=== PATIENT | female | born 2000 ===

== ENCOUNTER 2024-01-09 11:12 | Outpatient (AMB) | payer OTHER, SELFPAY ==
--- NOTE | 2024-01-09 11:42 | MHC.PC.OV ---
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 Intake Note: patient here for new patient visit Advertising Associate Required: No Is last menstrual period known: Yes Last menstrual period: 01/06/24 Post menopausal: No Patient : No Allergies No Known Allergies Allergy (Verified 01/09/24 12:04) Tobacco use date assessed: 01/09/24 Dental Screening Dental Screen Date: 01/09/24 Did you have a dental visit in the last 12 months?: Yes Did you have a dental problem in the last 6 months where you did not have access to dental care?: No Was dental information given to patient?: Patient has dentist HPI HPI Comments History of Present Illness Details New patient Prior PCP:?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 Tali Peterson Last office visit/CPE: About 5 years Acute issue(s): None She has had an IUD for the past 3 years She admits to making healthy lifestyle changes. She generally sleeps well She reports multiple moles and skin tags to her entire body. She request a referral to Dermatology Nonsmoker. Does not drink. No recreational drugs PMHx: None SurgHx: None FHx: Mom: DM, HTN, HLD. Dad: Bipolar 1 disorder.. MGM: Cardiovascular disease, DM, HTN, HLD. MGF: Cardiovascular disease, DM, HTN, HLD SocHx: Nonsmoker. Does not drink alcohol. No recreational drugs Last eye exam was with [facility] about a year ago. She will sign a release for her PCP to obtain records She has never had a pap smear test Last tetanus vaccine was over 10 years ago; requests vaccination She is not up-to-date on the flu vaccine; declines vaccination She notes that she is sexually active, in a monogamous relationship, and has no STD concerns [facility] Family History (Updated 01/09/24 @ 11:57 by Staci Gunn) Father Mental illness in member of household Bipolar 1 disorder Mother High blood pressure High cholesterol Diabetes Maternal Grandmother High blood pressure High cholesterol Diabetes Cardiovascular disease Maternal Grandfather High blood pressure High cholesterol Diabetes Cardiovascular disease Social History Housing: House Patient Tobacco Use Status: Never used Tobacco e-Cigarette/Vaping Use: Never Used Second Hand Smoke Exposure: No service: No Current occupational status: student Current occupational exposures/hazards: No Cognitive needs: No Hearing needs: No Vision needs: Yes Female Reproductive History Menstrual Date of last menstrual period: 01/06/24 Questionnaire PHQ-9 Over the last 2 weeks, how often have you been bothered by any of the following problems? 1. Little interest or pleasure in doing things: not at all 2. Feeling down, depressed, or hopeless: not at all 3. Trouble falling or staying asleep, or sleeping too much: not at all 4. Feeling tired or having little energy: not at all 5. Poor appetite or overeating: not at all 6. Feeling bad about yourself - or that you are a failure or have let yourself or your family down: not at all 7. Trouble concentrating on things, such as reading the newspaper or watching television: not at all 8. Moving or speaking so slowly that other people could have noticed. Or the opposite - being so fidgety or restless that you have been moving around a lot more than usual: not at all 9. Thoughts that you would be better off or of hurting yourself in some way: not at all Total score: 0 Depression Screening Interpretation: Negative Depression Screening Done: Yes 74308 - PHQ-9 Billing: Yes Source: Developed by Drs. Joseph Rudd, Dionna Jesus, Sriram You and colleagues, with an educational avinash from [employer]. Thrive Questionnaire Date Thrive assessed: 01/09/24 I am a: Patient What is your living situation today?: I have a steady place to live Within the past 12 months, did the food you bought not last and you didn't have the money to get more?: I choose not to answer this question Within the past 12 months, did you worry whether your food would run out before you got money to buy more?: Sometimes True Do you have trouble paying for medicines?: Yes Do you have trouble getting transportation to medical appointments?: No Do you have trouble paying your heating and electricity bill?: I choose not to answer this question Do you have trouble taking care of your child, family member or friend?: I choose not to answer this question Do you have trouble with day-to-day activities such as bathing, preparing meals, shopping, managing finances, etc.?: No Are you currently unemployed and looking for a job?: I choose not to answer this question Are you interested in more education?: I choose not to answer this question Please select the resources that you would like help with: Paying for medicine Currently or been in a relationship where the following occur: No concerns reported THRIVE Score: 1 AUDIT C Alcohol Use Questionnaire (AUDIT-C) 1. How often do you have a drink containing alcohol?: Never Total Score: 0 Score Reviewed/Action Taken: Yes EVELIA-7 AMB Questionnaire EVELIA-7 Date EVELIA - 7 assessed: 01/09/24 Feeling nervous, anxious, or on edge: 0 = Not at all Not being able to stop or control worryin = Not at all Worrying too much about different things: 0 = Not at all Trouble relaxin = Not at all Being so restless that it is hard to sit still: 0 = Not at all Becoming easily annoyed or irritable: 0 = Not at all Feeling afraid as if something awful might happen: 0 = Not at all Total EVELIA-7 score (0-4 normal; 5-9 mild; 10-14 moderate; 15-21 severe): 0 Source: Developed by Drs. Joseph uRdd, Dionna Jesus, Sriram You and colleagues, with an educational avinash from [employer]. EVELIA-7 Assessment Billing EVELIA-7 Assessment Tool: EVELIA-7 Assessment 23375 Review of Systems Const Details: Denies chills, Denies fatigue, Denies fever(s), Denies headache(s) and Denies weakness HEENT Denies change in vision, Denies dizziness, Denies headache(s), Denies hearing loss, Denies nasal congestion, Denies sinus pain, Denies sinus pressure and Denies sore throat Card Denies chest pain, Denies lightheadedness, Denies dyspnea and Denies other (palpitations) Resp Denies cough, Denies dyspnea and Denies wheezing GI Denies abdominal pain, Denies melena, Denies hematochezia, Denies change in bowel habits, Denies dyspepsia and Denies nausea Denies hematuria and Denies dysuria Musc Denies abnormal gait, Denies myalgias, Denies arthralgias, Denies numbness and Denies tingling Skin/Breast Denies rash, Denies unusual bruising and Denies wounds Neuro Denies abnormal gait, Denies dizziness, Denies headache(s), Denies memory loss, Denies numbness, Denies Sensory deficit (Neuro), Denies tingling and Denies weakness Psych Denies anxiety, Denies depression and Denies memory loss Endo Denies cold intolerance, Denies fatigue, Denies heat intolerance, Denies polydipsia and Denies polyuria Elmer/Lymph Denies easy bleeding and Denies easy bruising Aller/Immun Denies wheezing Physical exam (Primary Care) Vital Signs: Last Vital Signs Temp 99.3 F 01/09/24 11:46 Pulse 70 01/09/24 11:46 Resp 16 01/09/24 11:46 BP 110/68 01/09/24 11:46 Pulse Ox 100 01/09/24 11:46 Oxygen Delivery Method Room Air 01/09/24 11:46 BMI result Body Mass Index 26.3 Tobacco/Smoking Status: Tobacco use Status Tobacco use date assessed 01/09/24 01/09/24 11:57 Patient Tobacco Use Status Never used Tobacco 01/09/24 11:57 e-Cigarette/Vaping Use Never Used 01/09/24 11:57 PHQ-9: PHQ-9 Score PHQ-9: Total score 0 01/09/24 12:25 Depression Screening Interpretation: Negative Thrive Assessment: Date of Thrive Assessment Date Thrive assessed 01/09/24 01/09/24 11:44 Currently or been in a relationship where the following occur: No concerns reported Const Other: General: no acute distress, well developed, alert and awake Nutritional Appearance: well nourished Orientation/consciousness: patient oriented x3 HENMT Head: Yes normocephalic and Yes atraumatic Ears: hearing grossly normal bilaterally and TM's normal bilaterally General nose exam: Normal external nose present and Normal nares present Mouth: Normal oral and palatal mucosa present and moist mucous membranes Teeth and gingiva: dentition normal Throat: Yes oropharynx normal Eyes Pupils: Equal, round and reactive pupils present and Pupil accommodation reflex normal EOM: EOMs intact bilaterally Neck Neck: Yes normal visual inspection, Yes no lymphadenopathy and Yes trachea midline Thyroid: Thyroid normal Carotids: no bruits Lymphatic: no lymphadenopathy noted Chest Chest palpation & inspection: normal inspection of the chest Resp Effort & Inspection: normal respiratory effort Auscultation: clear to auscultation bilaterally Cardio Rate: regular rate Rhythm: regular rhythm Heart sounds: S1 normal heart sound present, S2 normal heart sound present, no gallops, no murmurs and no rubs Bruits: no abdominal aortic bruits and no carotid bruits GI Palpation (GI): No Abdominal aortic bruit present, Soft to palpation, nontender, No hepatosplenomegaly present and No Rebound tenderness present Auscultation: normal bowel sounds General: Yes no CVA tenderness Back/Spine/Pelvis Back: no CVA tenderness Cervical Spine: cervical ROM normal and No Cervical spine tenderness Thoracic/Lumbar Spine: thoraco-lumbar ROM normal, No pain with thoraco-lumbar ROM, No thoracic spinal tenderness and No lumbar spinal tenderness Skin General: warm and dry. Normal skin color. Normal skin turgor Lesions: Multiple moles and skin tags to different areas of her body Rashes: no rashes Trauma: no lacerations or abrasions Wounds: no wounds Nails: normal Neuro General: patient oriented x3, gait normal and CN's II-XI intact bilaterally Cranial nerves: Yes Equal, round and reactive pupils present Cognition (Neuro): normal cognition Gait exam (Neuro): Normal gait present Motor exam (neuro): 5/5 motor strength present throughout Sensory Exam: No Sensory deficit (Neuro) Deep tendon reflexes (DTR's): Right patellar reflex intensity grade: 2+ and Left patellar reflex intensity grade: 2+ Extrem General: Yes normal to inspection, No edema and No calf tenderness Psych Appearance: grossly normal Affect: normal affect Attitude: cooperative Thought process: Normal thought process present Immunizations Boostrix Tdap 2.5 Lf unit-8 mcg-5 Lf/0.5 mL intramuscular syringe Performing Provider: Ray Washington CNP Performing Location: [facility] [place] Family [facility] Administered by: Carol Lopez RN on 01/09/24 12:38 Dose Route Admin Location Dispensed Lot Number Expiration Date NDC Cutter Aluminum Sheet 0.5 mL IM Left Deltoid 0.5 mL [id number] 11/23/24 [id number] [employer] VIS Given Date VIS Provided VIS Publication Date 01/09/24 Single Vaccine 20 Eligibility Eligibility Date Funding Source Not [facility] Eligible 01/09/24 Private Coding Level of Care Code New Pt Prev Care 18-39yr([id number] Diagnoses Normal physical examination, routine Z00.00 Skin lesions L98.9 Pap smear for cervical cancer screening Z12.4 Vaccine for tetanus toxoid Z23 Laboratory tests ordered as part of a complete physical exam (CPE) Z00.00 Additional Codes EVELIA-7 Assessment Billing - EVELIA-7 Assessment Tool: EVELIA-7 Assessment 56006 ([id number]) PHQ-9 - 82352 - PHQ-9 Billing: Yes ([id number]) Assessment & Plan Assessment & Plan (1) Normal physical examination, routine: Code(s): Z00.00 - Encounter for general adult medical examination without abnormal findings Category: Medical Plan: No significant functional limitation noted Healthy diet and routine exercise encouraged Advised to get lab work done and follow-up in 2-3 weeks for telehealth visit for labs review or sooner with symptoms or concerns Verbalized understanding and agreed with the treatment plan (2) Skin lesions: Code(s): L98.9 - Disorder of the skin and subcutaneous tissue, unspecified Category: Medical Plan: Multiple moles and skin tags to different areas of her body Referred to dermatology (3) Pap smear for cervical cancer screening: Code(s): Z12.4 - Encounter for screening for malignant neoplasm of cervix Category: Medical Plan: She has never had a Pap smear test 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 Advised to fast for at least 10 hours before getting labs drawn. May drink water Verbalized understanding and agreed with treatment plan. Orders: Orders Complete Blood Count Auto Diff Today Z00.00 - Encounter for general adult medical examination without abnormal findings Lipid Panel Today Z00.00 - Encounter for general adult medical examination without abnormal findings TSH reflex Free T4 Today Z00.00 - Encounter for general adult medical examination without abnormal findings UA CC w/rflx Micro + Cult Today Z00.00 - Encounter for general adult medical examination without abnormal findings TDaP Immunization Today Z23 - Encounter for immunization Comprehensive [place]. 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
[2024-01-09 11:46] VITALS: BP 110/68; PULSE 70; RESP 16; TEMP 37.4; O2SAT 100; BMI 26.3
== END 2024-01-09 12:41 | disposition home or self-care (01) ==
PROVIDERS: Visit Provider Nurse Practitioner Family
DX: Z00.00 Encounter for general adult medical examination without abnormal findings (principal); L98.9 Disorder of the skin and subcutaneous tissue, unspecified; Z12.4 Encounter for screening for malignant neoplasm of cervix; Z23 Encounter for immunization

== ENCOUNTER → 2024-01-09 11:12 | Outpatient (BNVA) | payer OTHER, SELFPAY | PROVIDERS: Visit Provider Nurse Practitioner Family | DX: Z00.00 Encounter for general adult medical examination without abnormal findings (principal); Z23 Encounter for immunization; L98.9 Disorder of the skin and subcutaneous tissue, unspecified | CPT/HCPCS: 90471; 90715; 96127; 99385 ==

== ENCOUNTER 2024-01-10 08:57 | Outpatient (REF) | payer OTHER, SELFPAY ==
[2024-01-10 11:02] LABS: MANUAL DIFF FLAG NO
[2024-01-10 11:17] LABS: Basophils Percent Auto 0.4 % (0-2); Eosinophils Absolute Auto 0.1 X10*3/uL (0.0-0.4); Eosinophils Percent Auto 1.6 % (0-4); Hematocrit 37.4 % (37.0-47.0); Hemoglobin 12.7 g/dl (12.0-16.0); Imm Gran Abs Auto 0.01 X10*3/uL (0.00-0.03); Imm Gran Pct Auto 0.2 % (0.0-0.4); Lymphocytes Absolute Auto 1.3 X10*3/uL (1.2-4.9); Mean Corpuscular Hemoglobin 29.7 pg (27.0-33.0); Mean Corpuscular Volume 87.4 fL (80.0-98.0); Mean Platelet Volume 9.9 fL (9.4-12.3); Monocytes Absolute Auto 0.4 X10*3/uL (0.1-1.2); Neutrophils Absolute Auto 2.7 x10*3/uL (2.0-8.3); Neutrophils Percent Auto 60.8 % (45-73); Platelet Count 215 X10*3/uL (160-400); Red Blood Count 4.28 X10*6/uL (4.20-5.50); Red Cell Distribution Width 12.8 % (11.0-16.0); White Blood Count 4.5 X10*3/uL (4.8-10.8)
[2024-01-10 11:44] LABS: Alanine Aminotransferase 16 U/L (0-31); Albumin Level 4.4 g/dL (3.5-5.0); Alkaline Phosphatase 90 U/L (39-117); Anion Gap 8 (12-20); Aspartate Amino Transferase 17 U/L (5-31); Bilirubin Total 0.7 mg/dL (0.0-1.0); Blood Urea Nitrogen 13 mg/dL (9-16); Calcium 9.3 mg/dL (8.4-10.2); Carbon Dioxide 28 mmol/L (22-29); Chloride 106 mmol/L (96-108); Cholesterol 165 mg/dL (<200); Estimated Glomerular Filt Rate > 60; Glucose Fasting 92 mg/dL (60-99); HDL Cholesterol 43 mg/dL (>40); LDL Cholesterol Calculated 104 mg/dL (<100); Potassium 3.9 mmol/L (3.3-5.1); Sodium 138 mmol/L (135-145); Total Protein 7.2 g/dL (6.5-8.0); Triglycerides 92 mg/dL (<150)
[2024-01-10 11:53] LABS: Appearance Urine Clear; Color Urine Dark Yellow; Glucose Urine UA Negative (Negative); Leukocyte Esterase Urine Moderate (2+) (Negative); Nitrite Urine Negative (Negative); Specific Gravity - Urine 1.025 (1.005-1.025); UMIC TRIGGER UACC YES; Urine Blood Negative (Negative); Urine Ketones Negative (Negative); Urine Protein Negative (Neg-Trace)
[2024-01-10 12:00] LABS: Bacteria Urine 1+ (None Seen); Hyaline Casts Urine 0-2 /LPF (0-2); RBC Urine 0-2 /HPF (0-2); UACC Culture Trigger YES
[2024-01-10 12:02] LABS: TSH reflex Free T4 1.48 uIU/mL (0.32-4.0)
== END 2024-01-10 08:58 | disposition home or self-care (01) ==
LOC: HO.WFDLDS 08:57
PROVIDERS: Visit Provider Nurse Practitioner Family
DX: Z00.00 Encounter for general adult medical examination without abnormal findings (principal)
CPT/HCPCS: 36415; 80053; 80061; 81001; 84443; 85025; 87086

== ENCOUNTER 2024-02-04 14:54 | Outpatient (AMB) | payer OTHER, SELFPAY ==
--- NOTE | 2024-02-04 14:52 | A.OFFPC_ITS ---
Intake Visit Reasons: labs Intake Note[facility] Harness Placer Required: No Is last menstrual period known: Yes Last menstrual period: 02/04/24 Post menopausal: No Patient : No Allergies No Known Allergies Allergy (Verified 02/04/24 14:52) Tobacco use date assessed: 01/09/24 Dental Screening Dental Screen Date: 01/09/24 HPI HPI Comments History of Present Illness Details 23-year-old female [place] [facility] for review of recent lab results. She offers no complaints and denies acute symptoms at this time. [facility] Family History (Updated 01/09/24 @ 11:57 by Staci Gunn) Father Mental illness in member of household Bipolar 1 disorder Mother High blood pressure High cholesterol Diabetes Maternal Grandmother High blood pressure High cholesterol Diabetes Cardiovascular disease Maternal Grandfather High blood pressure High cholesterol Diabetes Cardiovascular disease Social History Housing: House Patient Tobacco Use Status: Never used Tobacco e-Cigarette/Vaping Use: Never Used Second Hand Smoke Exposure: No Patient : No service: No Current occupational status: student Current occupational exposures/hazards: No Cognitive needs: No Hearing needs: No Vision needs: Yes Female Reproductive History Menstrual Date of last menstrual period: 02/04/24 Questionnaire Thrive Questionnaire Date Thrive assessed: 01/02/24 I am a: Patient What is your living situation today?: I have a steady place to live Within the past 12 months, did the food you bought not last and you didn't have the money to get more?: I choose not to answer this question Within the past 12 months, did you worry whether your food would run out before you got money to buy more?: Sometimes True Do you have trouble paying for medicines?: Yes Do you have trouble getting transportation to medical appointments?: No Do you have trouble paying your heating and electricity bill?: I choose not to answer this question Do you have trouble taking care of your child, family member or friend?: I choose not to answer this question Do you have trouble with day-to-day activities such as bathing, preparing meals, shopping, managing finances, etc.?: No Are you currently unemployed and looking for a job?: I choose not to answer this question Are you interested in more education?: I choose not to answer this question Please select the resources that you would like help with: Paying for medicine Currently or been in a relationship where the following occur: No concerns reported THRIVE Score: 1 EVELIA-7 AMB Questionnaire EVELIA-7 Date EVELIA - 7 assessed: 01/09/24 Source: Developed by Drs. Joseph Rudd, Dionna Jesus, Sriram You and colleagues, with an educational avinash from [employer]. Review of Systems Const Details: Const Denies chills, Denies fatigue, Denies fever(s), Denies headache(s) and Denies weakness ENT Denies dizziness and Denies headache(s) Card Denies chest pain, Denies lightheadedness, Denies dyspnea and Denies other (Palpitations) Resp Denies cough, Denies dyspnea, Denies wheezing and Denies other ( shortness of breath) GI Denies abdominal pain, Denies melena, Denies hematochezia, Denies change in bowel habits, Denies dyspepsia and Denies nausea Denies hematuria and Denies dysuria Musc Denies abnormal gait, Denies myalgias, Denies arthralgias, Denies numbness and Denies tingling Skin/Breast Denies rash, Denies unusual bruising and Denies wounds Neuro Denies abnormal gait, Denies dizziness, Denies headache(s), Denies memory loss, Denies numbness, Denies Sensory deficit (Neuro), Denies tingling and Denies weakness Psych Denies anxiety, Denies depression, Denies memory loss Endo Denies cold intolerance, Denies fatigue, Denies heat intolerance, Denies polydipsia and Denies polyuria Aller/Immun Denies wheezing Physical exam (Primary Care) Tobacco/Smoking Status: Tobacco use Status Tobacco use date assessed 01/09/24 02/04/24 14:54 Patient Tobacco Use Status Never used Tobacco 02/04/24 14:54 e-Cigarette/Vaping Use Never Used 02/04/24 14:54 Thrive Assessment: Date of Thrive Assessment Date Thrive assessed 01/02/24 02/04/24 14:54 Currently or been in a relationship where the following occur: No concerns reported Const Other: Telehealth visit. No physical exam. Telehealth Telehealth Telehealth Platform: Telephone Location of provider rendering services: practice address Location of patient: address on file Patient Identification confirmed using: Name, : Yes Telehealth method: voice only Patient verbally consented to treatment: Yes Patient verbally consented to billing insurance company: Yes Patient informed of any privacy concerns related to visit: Yes Coding Level of Care Code Tele New Pt Level 3 (48554) Diagnoses Leukopenia D72.819 Elevated LDL cholesterol level E78.00 Time Spent (min) 10 Assessment & Plan Assessment & Plan (1) Leukopenia: Code(s): D72.819 - Decreased white blood cell count, unspecified Category: Medical Plan: Recent WBC is slightly low, 4.5. Will repeat WBC and check folate and vitamin B12 levels. Will make changes as needed. Advised to get nonfasting blood work done. Encouraged to schedule her next physical exam for 2024. Return with symptoms or concerns. Verbalized understanding and agreed with the plan. (2) Elevated LDL cholesterol level: Code(s): E78.00 - Pure hypercholesterolemia, unspecified Category: Medical Plan: Recent LDL is slightly elevated, 104. Advised to limit foods high in saturated fat and avoid foods high in trans fat. Routine exercise encouraged. Verbalized understanding and agreed with the plan. Orders: Orders WBC ONLY Today D72.819 - Decreased white blood cell count, unspecified Vitamin B12 and Folate Today D72.819 - Decreased white blood cell count, unspecified
== END 2024-02-04 15:20 | disposition home or self-care (01) ==
LOC: HO.HMCFM 14:54
PROVIDERS: Visit Provider Nurse Practitioner Family
DX: E78.00 Pure hypercholesterolemia, unspecified (principal); D72.819 Decreased white blood cell count, unspecified

== ENCOUNTER → 2024-02-04 14:54 | Outpatient (BNVA) | payer OTHER, SELFPAY | PROVIDERS: Visit Provider Nurse Practitioner Family ==

== ENCOUNTER 2024-04-22 09:59 | Outpatient (AMB) | payer OTHER, SELFPAY ==
--- NOTE | 2024-04-22 10:02 | A.OFFVIS_ITS ---
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 She has never had a Pap smear but she has had pelvic exams she had a ParaGard IUD inserted a couple of years ago or more in [place] where she grew up and lived. She was going to school at [employer] at the time. She got she and her both virgin so she has no concerns about STIs and she would have to check her records as to whether not she got the HPV vaccine. She has no worries about any infection. The ParaGard IUD has served her well and she likes it the 1st year she had it her periods were extremely heavy and crampy and lasted longer but they have gotten better. She recently saw her primary care provider. She works out in the gym and takes care of herself. 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 [employer] Family History Father Mental illness in member of household Bipolar 1 disorder Mother High blood pressure High cholesterol Diabetes Maternal Grandmother High blood pressure High cholesterol Diabetes Cardiovascular disease Maternal Grandfather High blood pressure High cholesterol Diabetes Cardiovascular disease Social History Housing: House Patient Tobacco Use Status: Never used Tobacco e-Cigarette/Vaping Use: Never Used Second Hand Smoke Exposure: No service: No Current occupational status: student Current occupational exposures/hazards: No Cognitive needs: No Hearing needs: No Vision needs: Yes Female Reproductive History Menstrual Duration of menses: 6-7 days Date of last menstrual period: 03/30/24 control method: copper IUCD Total pregnancies: 0 History of abnormal pap smear: No (no previous pap) Physical Exam Vital Signs: Last Vital Signs BP 100/60 04/22/24 10:06 BMI result Body Mass Index 26.4 Const General: healthy appearing, comfortable, no acute distress, well developed and alert Nutritional Appearance: average body habitus Orientation/consciousness: patient oriented x3 Limitations: no limitations HEENT Head: Yes normocephalic Neck Neck: Yes normal visual inspection Chest Chest palpation & inspection: normal inspection of the chest Breast/axilla inspection: normal inspection of the breasts and normal inspection of the axillae Breast/axilla palpation: normal palpation of the breasts and normal palpation of the axillae Resp Effort & Inspection: normal respiratory effort GI Inspection: Yes normal to inspection, No Abdominal wall edema and No distended Palpation (GI): Soft to palpation and nontender Other: Completely normal external exam vagina is pink and moist cervix nulliparous pink slightly reddened with ectropion long thick closed, deep in pelvis nontender, mobile, Uterus small anteverted mobile nontender adnexa nontender. Normal appearing vaginal mucus ParaGard string extends barely 1 cm from os. She says that is the length it was before because she had them cut it. General: Yes bladder normal to palpation External Female Exam: normal external appearance and normal appearance of the urethra Speculum Exam - Vagina: normal appearance of the vagina, normal palpation and normal vaginal discharge Speculum Exam - Cervix: normal appearance of the cervix, normal palpation and nontender Bimanual exam- vagina & uterus: normal bimanual exam, normal palpation, uterine size normal, bladder normal to palpation, consistency normal, normal palpation, uterine mobility normal, uterine shape normal, No Cervical tenderness present, non-tender and no cervical motion tenderness Bimanual Exam- Adnexa, other: normal adnexae, no masses, normal and No adnexal t enderness Neuro General: patient oriented x3 Results Reviewed Results Reviewed: December H&H Assessment & Plan Assessment & Plan (1) Pap smear for cervical cancer screening: Code(s): Z12.4 - Encounter for screening for malignant neoplasm of cervix Category: Medical (2) Well woman exam with routine gynecological exam: Code(s): Z01.419 - Encounter for gynecological examination (general) (routine) without abnormal findings Category: Medical (3) IUD (intrauterine device) in place: Comment: Patient has ParaGard IUD that was inserted 2-3 years ago in [place], no problems discussed process and future childbearing issues when that is desired Code(s): Z97.5 - Presence of (intrauterine) contraceptive device Category: Medical Plan -----Discussed in this visit the following: healthy balanced diet, regular and consistent exercise, getting recommended health screens, doing the best she can for her particular health concerns, kegel exercises, pap smear screening and followup recommendations, mammography screening and SBE, normal changes in cycles in her life stage--- . Discussed considerations for food to childbearing and options for care and comprehensive care around delivery in this area. Discussed that while it is possible to receive care here it is not comprehensive in that she would not meet the team that would be providing care throughout the and delivery, so for 1st , it would not be recommended. I let her know the options that were available to her in this area. Discussed starting multivitamins with folic acid, prior to considering conceiving. discussed the removal of the ParaGard IUD and how to arrange whenever she is ready. Discussed the difference between her control nonhormonal and other methods which she researched before insertion of this. She is going to look up whether not she had the HPV vaccine. She is on the portal so she obtain her results on the let her know for any normal findings vagina do not expect. She had no need for extra STI testing through blood work. I also reviewed her H&H which was within normal limits and showing no signs of anemia, because she had said that she had had heavy periods for the 1st year with the ParaGard. RTC 1 year for annual Orders: Orders Pap Smear Today Z00.00 - Encounter for general adult medical examination without abnormal findings CT NG by PCR Today N89.8 - Other specified noninflammatory disorders of vagina Bacterial Vaginosis Panel Today N89.8 - Other specified noninflammatory disorders of vagina Coding Level of Care Code New Pt Prev Care 18-39yr([id number] Diagnoses Pap smear for cervical cancer screening Z12.4 Well woman exam with routine gynecological exam Z01.419 IUD (intrauterine device) in place Z97.5
[2024-04-22 10:06] VITALS: BP 100/60; BMI 26.4
--- OUTSIDE RECORDS SUMMARY | 2024-04-22 11:35 | XMS_ITS | Clinical Summary ---
Author Organization [facility] ity Address [id number] [place] [id number] Care Team Providers Care Legal Project Manager Name Role Phone Unavailable Primary Care Provider Unavailabl e Social History Tobacco Use Types Packs/Day Years Used Date Smoking Tobacco: Never Assessed Comments Unknown Sex and Gender Information Value Date Recorded Sex Assigned at Not on file Legal Sex Female 12:06 PM EDT Gender Identity Not on file Sexual Orientation Not on file Plan of Treatment Health Maintenance Due Date Last Done Comments Gonorrhea/Chlamydia Screening 2000 HPV Vaccines (1 - 3-dose series) 09/13/2015 Meningococcal B Vacine (1 of 2 - Standard) 2016 DTaP,Tdap,and Td Vaccines (1 - Tdap) 09/13/2019 Hepatitis B Vaccines (1 of 3 - 19+ 3-dose series) 09/13/2019 Cervical Cancer Screening: P ap Smear 2021 COVID-19 Vaccine ( - 2023-2 5 season) 2023 Influenza Vaccine (#1) 2023 HIB Vaccines Aged Out No longer eligi ble based on patient's age to complete this topic Hepatitis A Vaccines Aged Out No long er eligible based on patient's age to complete this topic IPV Vaccines Aged Out No longer eligi ble based on patient's age to complete this topic MMR Vaccines Aged Out No longer eligi ble based on patient's age to complete this topic Meningococcal ACWY Vaccine Aged Out N o longer eligible based on patient's age to complete this topic Pneumococcal Vaccine: Pediat rics (0 to 5 Years) and At-Risk Patients (6 to 64 Years) Aged Out No longer eligible b ased on patient's age to complete this topic RSV Immunization Patients Un chris 20 months Aged Out No longer eligible b ased on patient's age to complete this topic Varicella Vaccines Aged Out No longer eligible based on patient's age to complete this topic
== END 2024-04-22 10:53 | disposition home or self-care (01) ==
PROVIDERS: Visit Provider Advanced Practice Midwife
DX: Z01.419 Encounter for gynecological examination (general) (routine) without abnormal findings (principal); Z97.5 Presence of (intrauterine) contraceptive device
CPT/HCPCS: 99385; 99459

== ENCOUNTER 2024-04-22 09:59 | Outpatient (REF) | payer OTHER, SELFPAY ==
--- OUTSIDE RECORDS SUMMARY | 2024-04-22 12:52 | XMS_ITS | Clinical Summary ---
Author Organization [facility] ity Address [id number] [place] [phone] Care Team Providers Care Sales Account Manager Name Role Phone Unavailable Primary Care [...]
[2024-04-23 11:47] LABS: CT PCR NOT DETECTED (Not Detect.); NG PCR NOT DETECTED (Not Detect.)
[2024-04-23 13:49] LABS: Bacterial Vaginosis PCR NEGATIVE (Negative); Candida Group PCR NOT DETECTED (Not Detect); Candida glab krusei PCR NOT DETECTED (Not Detect); Trichomonas vaginalis PCR NOT DETECTED (Not Detect)
== END 2024-04-22 10:00 | disposition home or self-care (01) ==
LOC: HO.LNP 09:59
PROVIDERS: Visit Provider Advanced Practice Midwife
DX: Z00.00 Encounter for general adult medical examination without abnormal findings (principal); N89.8 Other specified noninflammatory disorders of vagina; Z97.5 Presence of (intrauterine) contraceptive device; Z11.3 Encounter for screening for infections with a predominantly sexual mode of transmission; Z12.4 Encounter for screening for malignant neoplasm of cervix
CPT/HCPCS: 81515; 87491; 87591; 88175; 99385; 99459

== ENCOUNTER 2024-04-22 10:41 | Outpatient (REF) | payer OTHER, SELFPAY | END 2024-04-22 10:42 | disposition home or self-care (01) | LOC: HO.LAB 10:41 | PROVIDERS: Visit Provider Advanced Practice Midwife | DX: Z13.89 Encounter for screening for other disorder (principal) ==